=== PATIENT | female | born 1935 | race Caucasian/White ===

== ENCOUNTER → 2016-08-26 | Outpatient (CLI) | payer MEDICARE, OTHER ==
[~2016-08-26] MED LIST: ASPIR 8181 MG PO; COZAAR50 MG PO; IMDUR ER TAB 3030 MG PO; K-DUR TAB 20 M20 MEQ PO; LASIX40 MG PO; LEVEMIR100 UNIT/1 SQ; LIPITOR TAB 2020 MG PO; LOPRESSOR 50 MG50 MG PO; PLAVIX 75 MG TA75 MG PO; TESSALON PERLE100 MG PO; ZAROXOLYN/DIULO5 MG PO
== END ==
LOC: RAD 14:19
DX: R05 Cough (principal); J18.9 Pneumonia, unspecified organism; Z95.1 Presence of aortocoronary bypass graft
CPT/HCPCS: 71020

== ENCOUNTER → 2016-09-07 | Outpatient (CLI) | payer MEDICARE, OTHER | LOC: RAD 15:31 | DX: J12.9 Viral pneumonia, unspecified (principal) | CPT/HCPCS: 71020 ==

== ENCOUNTER 2017-01-09 11:29 | Emergency (ER) | payer MEDICARE, OTHER ==
[2017-01-09 13:55] LABS: HEMOGLOBIN 11.4 gm/dl (12.3-15.3); RED BLOOD COUNT 4.15 M/UL (4.00-5.10); WHITE BLOOD COUNT 9.7 K/UL (4.5-11.0)
== END 2017-01-09 17:07 | disposition home or self-care (01) ==
LOC: ER1 11:29
PROVIDERS: Emergency Medicine
DX: J20.8 Acute bronchitis due to other specified organisms (principal); E11.9 Type 2 diabetes mellitus without complications; R91.8 Other nonspecific abnormal finding of lung field; Z95.1 Presence of aortocoronary bypass graft; Z86.79 Personal history of other diseases of the circulatory system
CPT/HCPCS: 36415; 71020; 71250; 80053; 85025; 93005; 99284